=== PATIENT | female | born 1995 | race Caucasian/White ===

== ENCOUNTER 2017-02-25 09:47 | Emergency (ER) | payer SELFPAY ==
[2017-02-25] MEDS ORDERED: ONDANSETRON HCL 4 MG/2 ML VIAL ONE (10:04)
[2017-02-25 10:36] LABS: ALBUMIN 4.5 g/dL (3.5-5.0); ALKALINE PHOSPHATASE 45 U/L (38-126); ALT 31 U/L (9-52); AST 27 U/L (14-36); BILIRUBIN, DIRECT 0.2 mg/dL (0.0-0.4); BILIRUBIN, TOTAL 1.3 mg/dL (0.2-1.3); BLOOD UREA NITROGEN 11 mg/dL (7-17); CALCIUM 9.5 mg/dL (8.4-10.2); CHLORIDE 108 mmol/L (98-107); CREATININE 0.7 mg/dL (0.5-1.0); EST GLOMERULAR FILTRATION RATE > 60 mL/min; GLUCOSE 134 mg/dL (70-100); LIPASE 99 U/L (23-300); POTASSIUM 3.9 mmol/L (3.5-5.1); SODIUM 141 mmol/L (137-145); TOTAL PROTEIN 7.9 g/dL (6.3-8.2)
[2017-02-25 10:52] LABS: RED BLOOD COUNT 4.53 X 10^6uL (4.20-6.10)
[2017-02-25 10:53] LABS: HEMATOCRIT 42.1 % (36.0-48.0); HEMOGLOBIN 13.2 g/dL (12.0-16.0); LYMPHOCYTE % (Manual) 36 % (20.0-40.0); MEAN CORPUS. HGB CONCENTRATION 31.2 g/dL (32.0-36.0); MONOCYTE % (Manual) 6 % (2.0-10.0); NEUTROPHIL % (Manual) 58 % (54.0-75.0); PLATELET COUNT 257 X 10^3uL (130-440); PLATELET ESTIMATE ADEQUATE
--- NOTE | 2017-02-25 11:15 | ER NURSING DOCUMENTATION ---
Nurse's Notes Name:Julieta Dean Age:22 yrs Sex:Female :1995 Arrival Date:02/25/2017 Time:09:47 Bed3 Private MD: Diagnosis:Abdominal Pain, Unspecified Presentation: 02/25 09:52 Presenting complaint: Patient states: N/V ABD pain with weakness or possible syncope tg [facility] via EMS. Transition of care: patient was not received from another setting of care. 09:52 Acuity: TRISH 3 tg 09:52 Method Of Arrival: EMS: 410 tg 10:00 Notified ED Physician of patient's arrival and CC Dr. Frye notified. tg Triage Assessment: 10:07 General: Appears in no apparent distress, Behavior is cooperative, pleasant. Pain: tg Denies pain. Neuro: Level of Consciousness is awake, alert. Cardiovascular: Capillary refill < 3 seconds. Respiratory: Respiratory effort is even, unlabored. GI: Abdomen is flat, Abd is soft and non tender Reports vomiting, Denies constipation, diarrhea, nausea, pain. : Denies burning with urination, urinary frequency. Derm: Skin is pink, warm & dry. 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 No previous cramping tg this severe Historical: - Allergies: No known drug Allergies; - Home Meds: 1. None - PMHx: None; - PSHx: None; - Tetanus: < 10 years. - Ebola Screening: : Patient negative for fever greater than or equal to 101.5 degrees Fahrenheit, and additional compatible Ebola Virus Disease symptoms. Patient denies exposure to infectious person. Patient denies travel to an Ebola-affected area in the 21 days before illness onset. No symptoms or risks identified at this time. . - Immunization history: Flu Vaccine >1 year. - Social history: Smoking status: Patient states was never smoker of tobacco. Screenin:11 Infectious Disease Risk Unable to Obtain. Abuse screen: Denies threats or abuse. Denies tg injuries from another. Nutritional screening: No deficits noted. Vital Signs: 10:07 BP 115 / 71; Pulse 70; Resp 16; Temp 98.2(O); Pulse Ox 94% ; Weight 48.99 kg; Height 5 tg ft. 1 in. (154.94 cm) (R); Pain 0/10; 11:12 BP 131 / 85; Pulse 86; Resp 14; Pulse Ox 96% on R/A; Pain 0/10; tg 10:07 Body Mass Index 20.41 (48.99 kg, 154.94 cm) tg ED Course: 09:48 Patient arrived in ED. lm3 09:52 Alfredo Ocasio, RN is Primary Nurse. tg 09:52 Triage completed. tg 10:10 Valuables Remains with patient. Diet: Patient is NPO. tg 10:11 Maintain field IV. Site clean & dry. Gauge & site: 20g LAC. tg 10:21 Jamarcus Frye MD is Attending Physician. sc Administered Medications: 10:05 Drug: NS 0.9% 500 ml; Route: IV; Rate: bolus; Site: left antecubital; Delivery: [place] tg Tubing; 10:31 Follow up: IV Status: Completed infusion; IV Intake: 500ml tg Point of Care Testing: Urine Dip: 11:02 pH: 8.5; ; Specific [place]: 1.02; Ketones: Negative; Glucose: Negative; Protein: tg Positive (+); Leukocytes: Negative; Nitrite: Negative ; Blood: Large (+++); Bilirubin: Negative ; Urobilinogen: Normal Intake: 10:31 IV: 500ml; Total: 500ml. tg Outcome: 10:53 Discharge ordered by . md 11:12 Discharged to home ambulatory. tg 11:12 Condition: stable 11:12 Discharge Assessment: Patient awake, alert and oriented x 3. No cognitive and/or functional deficits noted. Patient verbalized understanding of disposition instructions. 11:12 Instructed on discharge instructions, follow up and referral plans. 11:14 Patient left the ED. tg Signatures: Alfredo Ocasio, RN RN tg Jamarcus Frye MD MD md Corrina Ansari lm3
--- NOTE | 2017-02-25 11:15 | ER PHYSICIAN DOCUMENTATION ---
Physician Documentation [facility] Name:Julieta Dean Age:22 yrs Sex:Female :1995 Arrival Date:02/25/2017 Time:09:47 Bed3 Private MD: Jamarcus Marquez Disposition: 02/25/17 10:53 Discharged to Home/Self Care. Impression: Abdominal Pain, Unspecified. - Condition is Good. - Discharge Instructions: Abdomen - ABDOMINAL PAIN, Unknown Cause, (Female). - Medical Reconciliation form form. - Follow up: Emergency Department; When: As needed; Reason: Worsening of condition. - Problem is new. - Symptoms are resolved. HPI: 02/25 10:46 This 22 yrs old Female presents to ER via EMS with complaints of sc Nausea/Vomiting. 10:46 The patient presents to the emergency department with nausea, with vomiting, with sc diarrhea, with associated abdominal pain, of the suprapubic area, described as crampy, sharp, and does not radiate. Onset: The symptom(s)/episode began/occurred 1 hour(s) ago. Possible causes: unknown, bad food exposure. Associated signs and symptoms: Pertinent positives: laid down because of nausea may have had brief syncope, no fall. The patient has not experienced similar symptoms in the past. 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 No previous cramping tg this severe Historical: - Allergies: No known drug Allergies; - Home Meds: 1. None - PMHx: None; - PSHx: None; - Tetanus: < 10 years. - Ebola Screening: : Patient negative for fever greater than or equal to 101.5 degrees Fahrenheit, and additional compatible Ebola Virus Disease symptoms. Patient denies exposure to infectious person. Patient denies travel to an Ebola-affected area in the 21 days before illness onset. No symptoms or risks identified at this time. . - Immunization history: Flu Vaccine >1 year. - Social history: Smoking status: Patient states was never smoker of tobacco. ROS: 10:47 Constitutional: Negative for fever, chills, and weight loss. sc Eyes: Negative for injury, pain, redness, and discharge. ENT: Negative for injury, pain, and discharge. Neck: Negative for injury, pain, and swelling. Cardiovascular: Negative for chest pain, palpitations, and edema. Respiratory: Negative for shortness of breath, cough, wheezing, and pleuritic chest pain. Back: Negative for injury and pain. : Negative for injury, bleeding, discharge, and swelling. MS/Extremity: Negative for injury and deformity. Skin: Negative for injury, rash, and discoloration. 10:47 Neuro: Negative for headache, weakness, numbness, tingling, and seizure. sc 10:47 Abdomen/GI: Positive for abdominal pain, nausea, vomiting, diarrhea. Exam: Constitutional: This is a well developed, well nourished patient who is awake, alert, and in no acute distress. Head/Face: Normocephalic, atraumatic. Eyes: Pupils equal round and reactive to light, extra-ocular motions intact. Lids and lashes normal. Conjunctiva and sclera are non-icteric and not injected. Cornea within normal limits. Periorbital areas with no swelling, redness, or edema. ENT: Nares patent. No nasal discharge, no septal abnormalities noted. Tympanic membranes are normal and external auditory canals are clear. Oropharynx with no redness, swelling, or masses, exudates, or evidence of obstruction, uvula midline. Mucous membranes moist. Neck: Trachea midline, no thyromegaly or masses palpated, and no cervical lymphadenopathy. Supple, full range of motion without nuchal rigidity, or vertebral point tenderness. No meningismus. Chest/axilla: Normal chest wall appearance and motion. Nontender with no deformity. No lesions are appreciated. Cardiovascular: Regular rate and rhythm with a normal S1 and S2. No gallops, murmurs, or rubs. Normal PMI, no JVD. No pulse deficits. Respiratory: Lungs have equal breath sounds bilaterally, clear to auscultation and percussion. No rales, rhonchi or wheezes noted. No increased work of breathing, no retractions or nasal flaring. Abdomen/GI: Soft, non-tender, with normal bowel sounds. No distension or tympany. No guarding or rebound. No evidence of tenderness throughout. Back: No spinal tenderness. No costovertebral tenderness. Full range of motion. Skin: Warm, dry with normal turgor. Normal color with no rashes, no lesions, and no evidence of cellulitis. MS/ Extremity: Pulses equal, no cyanosis. Neurovascular intact. Full, normal range of motion, negative Homans's, calves equal bilaterally. 10:47 Neuro: Awake and alert, GCS 15, oriented to person, place, time, and situation. az Cranial nerves II-XII grossly intact. Motor strength 5/5 in all extremities. Sensory grossly intact. Cerebellar exam normal. Normal gait. 10:47 : CVA tenderness, is absent, Pelvic Exam: the exam is deferred. 10:53 Skin: Exam negative for acute changes. az Vital Signs: 10:07 BP 115 / 71; Pulse 70; Resp 16; Temp 98.2(O); Pulse Ox 94% ; Weight 48.99 kg; Height 5 tg ft. 1 in. (154.94 cm) (R); Pain 0/10; 11:12 BP 131 / 85; Pulse 86; Resp 14; Pulse Ox 96% on R/A; Pain 0/10; tg 10:07 Body Mass Index 20.41 (48.99 kg, 154.94 cm) tg MDM: 10:21 Patient medically screened. az 10:48 Differential diagnosis: Nonspecific abd pain, viral gastroenteritis, gastroenteritis, sc mittleschmerz vs ectopic vs food poisoning. Differential diagnosis: vs ovarian cyst. Data reviewed: vital signs, nurses notes, lab test result(s), and as a result, I will continue to observe the patient. Counseling: I had a detailed discussion with the patient and/or guardian regarding: the historical points, exam findings, and any diagnostic results supporting the discharge/admit diagnosis, lab results, the need for outpatient follow up, to return to the emergency department if symptoms worsen or persist or if there are any questions or concerns that arise at home. 02/25 10:42 Order name: BASIC METABOLIC PANEL [facility], [place] 02/25 10:49 Interpretation: Normal. az 02/25 10:42 Order name: HEPATIC PANEL [facility], [place] 02/25 10:49 Interpretation: Normal. az 02/25 10:42 Order name: LIPASE EDAZ 02/25 10:49 Interpretation: Normal. az 02/25 10:54 Order name: CBC W/ MANUAL DIFFERENTIAL; Complete Time: 10:54 EDAZ 02/25 10:54 Interpretation: Normal. az 02/25 10:54 Order name: HCG, SERUM EDAZ 02/25 10:01 Order name: NPO; Complete Time: 10:02 tg 02/25 10:01 Order name: Urine Dip; Complete Time: 11:00 tg Dispensed Medications: 10:05 Drug: NS 0.9% 500 ml; Route: IV; Rate: bolus; Site: left antecubital; Delivery: [place] tg Tubing; 10:31 Follow up: IV Status: Completed infusion; IV Intake: 500ml tg Point of Care Testing: Urine Dip: 11: pH: 8.5; ; Specific [place]: 1.02; Ketones: Negative; Glucose: Negative; Protein: tg Positive (+); Leukocytes: Negative; Nitrite: Negative ; Blood: Large (+++); Bilirubin: Negative ; Urobilinogen: Normal Signatures: Alfredo Ocasio RN RN Jamarcus Frye MD MD az
== END 2017-02-25 11:14 | disposition home or self-care (01) ==
LOC: ER 09:47
DX: R10.30 Lower abdominal pain, unspecified (principal); R11.2 Nausea with vomiting, unspecified; R19.7 Diarrhea, unspecified; Z99.89 Dependence on other enabling machines and devices; Z74.3 Need for continuous supervision
CPT/HCPCS: 80048; 80076; 83690; 84703; 85007; 85027; 99283; J2405